=== PATIENT | female | born 1970 | race African-American/Black ===

== ENCOUNTER 2018-12-25 16:56 | Emergency (ER) | payer OTHER ==
[~2018-12-25] VITALS: Ht 165.1 cm; Wt 68.0 kg
[~2018-12-25 16:56] MED LIST: HYDROCODON-ACE1 EAC5 PO; HYDROCODONE-AP1 EAC6 PO; IBUPROFEN 600600 M1 PO; IBUPROFEN 800800 M1 PO; IBUPROFEN 800800 MG PO; NORCO 5-325 TA1 EACH PO
[2018-12-25 17:31] LABS: ABSOLUTE NEUTROPHILS 2.2 thou/uL (1.4-8.2); BASOPHILS 0.6 % (0.0-2.0); EOSINOPHILS 2.4 % (0.0-3.0); HEMOGLOBIN 13.8 gm/dL (12.0-15.0); LYMPHOCYTES 42.7 % (24.0-44.0); MCH 31.9 pg (26.0-34.0); MCHC 34.4 g/dL (28.0-37.0); MCV 92.7 fL (80.0-100.0); MONOCYTES 7.3 % (1.0-8.0); PLATELET COUNT 326 thou/uL (150-400); RBC 4.32 mil/uL (4.20-5.00); WBC 4.7 thou/uL (4.0-11.0)
[2018-12-25 17:40] LABS: ANION GAP 10 mmol/L (7-16); BUN 14 mg/dL (7-18); CALCIUM 8.2 mg/dL (8.5-10.1); CHLORIDE 108 mmol/L (98-107); CO2 23 mmol/L (21-32); CREATININE 1.2 mg/dL (0.6-1.0); GLUCOSE 106 mg/dL (74-106); POTASSIUM 3.7 mmol/L (3.5-5.1); SODIUM 141 mmol/L (136-145)
[2018-12-25 17:50] LABS: MAGNESIUM 2.3 mg/dL (1.8-2.4); SGOT 14 U/L (15-37); SGPT 16 U/L (30-65); TOTAL BILIRUBIN 0.1 mg/dL (<0.1-1.0); TOTAL PROTEIN 6.8 g/dL (6.4-8.2); TROPONIN-I <0.06 ng/mL (<0.06)
[2018-12-25] MEDS ORDERED: FLEXERIL PO (18:04)
[2018-12-25] MEDS ORDERED: NAPROSYN500 MG PO (18:04)
[2018-12-25 18:35] VITALS: BP 107/62
--- NOTE | 2018-12-27 18:18 | EKG ---
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1970 Requested By: Orion Padilla Order Number: [id number] MD: Ritesh Aguila Measurements Intervals [place] Rate: 58 P: 64 RI: 181 QRS: 48 QRSD: 77 T: 43 QT: 411 QTc: 404 Interpretive Statements Sinus rhythm Abnormal R-wave progression, early transition No previous ECG available for comparison Electronically Signed On 12-27-2018 18:18:01 CDT by Ritesh Aguila [email or web address] ��������������������������������������������� <ELECTRONICALLY SIGNED> ���������������������������������������� By: Ritesh Aguila MD, [facility] ��������������������������������������������� 12/27/18 1818 1717 1717 Ritesh Aguila MD, FACC /EPI
== END 2018-12-25 18:20 | disposition home or self-care (01) ==
LOC: ER 16:56
PROVIDERS: Emergency Medicine
DX: R07.89 Other chest pain (principal); Z91.040 Latex allergy status; Z90.49 Acquired absence of other specified parts of digestive tract

== ENCOUNTER 2019-08-03 07:49 | Emergency (ER) | payer OTHER ==
[~2019-08-03] VITALS: Ht 160 cm; Wt 66.7 kg
[~2019-08-03 07:49] MED LIST changes: +FLEXERIL PO; +NAPROSYN500 MG PO
[2019-08-03] MEDS ORDERED: PROZAC 10 MG CA10 MG PO (07:52)
[2019-08-03] MEDS ORDERED: GUAIFEN-CODEINE10 ML PO (09:35)
[2019-08-03 10:16] VITALS: BP 135/71
--- NOTE | 2019-08-03 12:07 | EKG ---
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
== END 2019-08-03 11:02 | disposition home or self-care (01) ==
LOC: ER 07:49
DX: J06.9 Acute upper respiratory infection, unspecified (principal); Z90.49 Acquired absence of other specified parts of digestive tract; Z91.040 Latex allergy status

== ENCOUNTER 2021-07-28 12:32 | Emergency (ER) | payer OTHER ==
[~2021-07-28] VITALS: Ht 162.6 cm; Wt 71.7 kg
[~2021-07-28 12:32] MED LIST changes: +GUAIFEN-CODEINE10 ML PO; +PROZAC 10 MG CA10 MG PO
[2021-07-28] MEDS ORDERED: FLEXERIL PO (12:36)
[2021-07-28] MEDS ORDERED: PAROXETINE CR12.5 MG PO (12:36)
[2021-07-28 12:58] LABS: ABSOLUTE NEUTROPHILS 8.3 thou/uL (1.4-8.2); BASOPHILS 0.1 % (0.0-2.0); EOSINOPHILS 0.7 % (0.0-3.0); HEMATOCRIT 46.6 % (37.0-47.0); HEMOGLOBIN 16.2 gm/dL (12.0-15.0); LYMPHOCYTES 13.5 % (24.0-44.0); MCH 31.9 pg (26.0-34.0); MCHC 34.8 g/dL (28.0-37.0); MCV 91.5 fL (80.0-100.0); PLATELET COUNT 350 thou/uL (150-400); POLYS 80.7 % (36.0-66.0); RBC 5.09 mil/uL (4.20-5.00); RDW 13.5 % (10.5-14.5); WBC 10.3 thou/uL (4.0-11.0)
[2021-07-28 13:02] LABS: URINE BILIRUBIN NEGATIVE (Negative); URINE BLOOD TRACE (Negative); URINE CLARITY CLEAR; URINE COLOR YELLOW; URINE GLUCOSE-RANDOM* NEGATIVE (Negative); URINE KETONES NEGATIVE (Negative); URINE LEUKOCYTES-REFLEX NEGATIVE (Negative); URINE NITRITE-REFLEX NEGATIVE (Negative); URINE PROTEIN (DIPSTICK) NEGATIVE (Negative); URINE UROBILINOGEN 0.2 E.U./dl (0.2-1.0)
[2021-07-28 13:20] LABS: CALCIUM 9.9 mg/dL (8.5-10.1); CREATININE 1.1 mg/dL (0.6-1.0); POTASSIUM 4.5 mmol/L (3.5-5.1)
[2021-07-28 13:30] LABS: TOTAL BILIRUBIN 0.4 mg/dL (0.2-1.0); TOTAL PROTEIN 8.2 g/dL (6.4-8.2)
[2021-07-28 13:43] VITALS: BP 117/78
[2021-07-28] MEDS ORDERED: ZOFRAN ODT4 MG PO (13:59)
--- NOTE | 2021-07-30 07:36 | EKG ---
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
== END 2021-07-28 14:20 | disposition home or self-care (01) ==
LOC: ER 12:32
PROVIDERS: Emergency Medicine; Physician Assistant
DX: T50.905A Adverse effect of unspecified drugs, medicaments and biological substances, initial encounter (principal); R11.2 Nausea with vomiting, unspecified; R07.89 Other chest pain; F12.90 Cannabis use, unspecified, uncomplicated; Z90.49 Acquired absence of other specified parts of digestive tract; Z79.899 Other long term (current) drug therapy; Z91.040 Latex allergy status; Y92.89 Other specified places as the place of occurrence of the external cause